=== PATIENT | female | born 1985 ===

== ENCOUNTER 2018-10-05 21:24 | Emergency (ER) | payer MEDICAID ==
[2018-10-05 21:36] VITALS: BMI 39.6
[2018-10-05] MEDS ORDERED: DOXYCYCLINE HY100 M2 PO (21:37)
[2018-10-05] MEDS ORDERED: PROTONIX20 MG PO (21:37)
[2018-10-05] MEDS ORDERED: METROGEL 0.75 %45 GM TOPICAL (21:37)
[2018-10-05] MEDS ORDERED: ORAL CONTRACEPTIVE (21:37)
[2018-10-05] MEDS ORDERED: XANAX1 MG PO (21:37)
[2018-10-05] MEDS ORDERED: ANDROGEL5 GM TP (21:37)
== END 2018-10-06 00:25 | disposition home or self-care (01) ==
LOC: D.ER 21:24
DX: R53.81 Other malaise (principal)